=== PATIENT | male | born 1950 | race Caucasian/White ===

== ENCOUNTER 2017-08-16 07:53 | Observation (INO) | payer MEDICARE ==
[2017-08-13 09:13] LABS: BASOPHILS # (AUTO) 0.1 (0.0-0.1); BASOPHILS % 0.7 % (0.0-1.0); EOSINOPHILS # (AUTO) 0.1 (0.0-0.4); EOSINOPHILS % 1.6 % (0.0-6.0); HEMOGLOBIN 16.1 g/dL (14.0-18.0); LYMPHOCYTES # (AUTO) 1.6 (1.0-3.2); LYMPHOCYTES % 21.7 % (18.0-39.1); MEAN CORPUSCULAR HEMOGLOBIN 34.7 pg (28-32); MEAN CORPUSCULAR HGB CONC 35.8 g/dL (31-35); MONOCYTES # (AUTO) 0.8 (0.2-0.8); MONOCYTES % 10.4 % (4.4-11.3); NEUTROPHILS # (AUTO) 4.9 (2.1-6.9); NEUTROPHILS % 64.9 % (38.7-80.0); PLATELET COUNT 186 x10e3/uL (140-360); RED BLOOD COUNT 4.64 x10e6/uL (4.3-5.7); RED CELL DISTRIBUTION WIDTH 13.2 % (11.7-14.4)
--- NOTE | 2017-08-13 10:07 | Diagnostic Imaging Report ---
PROCEDURE: X-RAY CHEST, TWO VIEWS COMPARISON: 01/12/12. INDICATIONS: PREOPERATIVE CHEST XRAY FOR KNEE SURGERY FINDINGS: The lungs are well-inflated. Linear opacity in the left lung base compatible with subsegmental atelectasis. No consolidation, pleural effusion, or pneumothorax. Cardiomediastinal contour is stable with mild tortuosity of the thoracic aorta. No overt pulmonary edema. No acute osseous abnormality. Surgical lips project over the upper abdomen on the lateral radiograph, also unchanged. CONCLUSION: Linear atelectasis in the left lung base. Otherwise no acute cardiopulmonary abnormality. Dictated by: Israel Salamanca M.D. on 08/13/2017 at 10:11 Electronically approved by: Israel Salamanca M.D. on 08/13/2017 at 10:11
[~2017-08-16] VITALS: Ht 175.3 cm; Wt 99.8 kg
[~2017-08-16 07:53] MED LIST: ASPIRIN NON IR325 MG PO; CYCLOBENZAPRINE10 MG PO; FOLIC ACID1 MG PO; LEVOTHYROXINE50 MCG PO; LOPRESSOR25 MG PO; LOSARTAN POTAS100 MG PO; MELOXICAM15 MG PO; NITROGLYCERIN0.4 MG; PLAVIX75 MG PO; ROPIVACAINE 246.25 MG, EPINEPHRINE HCL 1:1000 0.5 MG, CLONIDINE HCL 0.08 MG, KETOROLAC ... INJ ONE; SIMVASTATIN40 MG PO; SINGULAIR10 MG PO; VITAMIN D1000 UNI1 PO
[2017-08-16] MEDS ORDERED: GABAPENTIN 300 MG CAP ONE (08:21)
[2017-08-16] MEDS ORDERED: CEFAZOLIN SOD 2 GM/D5W 50ML 50 ML IV ONE (08:21)
[2017-08-16] MEDS ORDERED: DEXAMETHASONE SOD PHOS 10 MG/1 ML VIAL ONE (08:21)
[2017-08-16] MEDS ORDERED: CELECOXIB 200 MG CAP ONE (08:21)
[2017-08-16] MEDS ORDERED: BACITRACIN 50,000 UNIT VIAL ONE (08:50)
[2017-08-16] MEDS ORDERED: TRANEXAMIC ACID 1,000 MG/10 ML ML ONE (08:50)
[2017-08-16] MEDS ORDERED: MUPIROCIN 2% OINT 22 GM TUBE ONE (08:50)
[2017-08-16] MEDS ORDERED: SODIUM CHLORIDE 0.9% 1000ML 1,000 ML IV SCH (11:21)
[2017-08-16] MEDS ORDERED: HYDROCODONE/APAP 5MG-325MG TAB PO PRN (11:30)
[2017-08-16] MEDS ORDERED: PROMETHAZINE HCL (IM) 25 MG/ML VIAL IM PRN (11:30)
[2017-08-16] MEDS ORDERED: ACETAMINOPHEN 650 MG SUPP PR PRN (11:30)
[2017-08-16] MEDS ORDERED: DIPHENHYDRAMINE HCL INJ 50 MG/ML VIAL IM/IV PRN (11:30)
[2017-08-16] MEDS ORDERED: ONDANSETRON HCL INJ 2 MG/ML VIAL IV PRN (11:30)
[2017-08-16] MEDS ORDERED: DOCUSATE SODIUM 100 MG CAP PO PRN (11:30)
[2017-08-16] MEDS ORDERED: FENTANYL CITRATE/PF 100MCG/2 ML INJ ONE ×2 (11:48→17:42)
--- NOTE | 2017-08-16 12:00 | Diagnostic Imaging Report ---
PROCEDURE: X-RAY RIGHT KNEE, ONE OR TWO VIEWS COMPARISON: None. INDICATIONS:STATUS POST RIGHT KNEE SURGERY FINDINGS: See conclusion. CONCLUSION: Status post total right knee replacement with surrounding soft tissue swelling, air and linette consistent with recent surgery. No periprosthetic displaced fractures. Dictated by: Israel Salamanca M.D. on 08/16/2017 at 12:03 Electronically approved by: Israel Salamanca M.D. on 08/16/2017 at 12:03
[2017-08-16] MEDS: ACETAMINOPHEN 1000 MG/100 ML IV SCH ×3 (12:48→23:16)
--- NOTE | 2017-08-16 12:56 | Operative Report ---
DATE OF PROCEDURE: August 16, 2017 SALES LEAD GENERATOR: Benjamin Mao PA-C The patient was brought to the operating room for induction of anesthesia. Throughout this case, my PA's assistance was necessary for retraction of soft tissue and positioning of the extremity. This allows for efficient and technically successful execution of the operation and is considered medically necessary. PREOPERATIVE DIAGNOSIS: Osteoarthritis right knee. POSTOPERATIVE DIAGNOSIS: Osteoarthritis right knee. PROCEDURE: Right total knee arthroplasty. INDICATIONS: The patient is a 67-year-old gentleman with advanced osteoarthritis of his right knee. He has failed conservative management and feels the symptoms are severely compromising his quality of life. He would like to proceed with a right total knee replacement. The risks and benefits have been explained. He states he understands and wishes to proceed. DESCRIPTION OF PROCEDURE: The patient was brought to the operating room and placed under general anesthetic. He received a regional block, prophylactic antibiotics and tranexamic acid in the holding area. His right lower extremity was prepped and draped in a sterile manner. A preoperative time out was performed. The extremity was exsanguinated, and the proximal tourniquet was inflated to 300 mmHg. An anterior approach with a medial parapatellar arthrotomy was performed. Soft-tissue releases were performed to bring the knee up into flexion with the patella everted. Meniscal remnants and marginal osteophytes were removed. The cruciate ligaments were sacrificed. A [employer] Samina II posterior stabilized knee system was used throughout the case. The proximal tibia was resected with an extramedullary cutting guide. The tibial baseplate was a size number 6. The central fin punch was impacted, and attention was directed towards the distal femur. An intramedullary cutting guide was used to resect the distal femur in 6 degrees of valgus and rotation referenced off of a combination of landmarks including [place]'s line, the epicondylar axis and the posterior condyles. The femoral component was a size number 7. The anterior and posterior cuts were made. Trial reductions were performed. A 9 mm ultracongruent tibial insert provided optimal soft-tissue balancing in full extension and 90 degrees of flexion. The patella was resurfaced with a 35 mm x 9 mm patellar button. The thickness was checked before and after resurfacing and was right at 27 mm. The patellar tracking was noted to be concentric. The trial implants were then all removed. The knee was thoroughly irrigated with a shower-tip pulsatile lavage. A 100 mL premixed pericapsular GIGI injection was placed into the surrounding soft tissue. The components were then cemented into place using a single mix of [place] cement pre-loaded with antibiotics. Care was taken to remove extravasated cement. The wound was further irrigated while the cement cured. The arthrotomy was then closed with interrupted number 1 Ethibond. The knee was put through flexion and extension to ensure a secure closure. The skin was then closed with subcuticular Vicryl and linette. A sterile bandage was applied. The patient was extubated and transported to the recovery room in stable condition. Blood loss was minimal. All needle and sponge counts were correct. Job#: [id number] JENIFER
[2017-08-16 13:03] VITALS: BP 137/73
[2017-08-16] MEDS: KETOROLAC TROMETHAMINE 30 MG/ML VIAL IV PRN ×2 (13:10→20:05)
[2017-08-16] MEDS ORDERED: CELECOXIB 100 MG CAP PO SCH (17:00)
[2017-08-16] MEDS: CELECOXIB 200 MG CAP PO SCH (17:01)
[2017-08-16] MEDS: ASPIRIN 325 MG TAB PO SCH (17:01)
[2017-08-16] MEDS: CEFAZOLIN SOD 1 GM/D5W 50ML 50 ML IV SCH (17:25)
[2017-08-16] MEDS ORDERED: LIDOCAINE HCL 2% LOCAL INJ 5 ML SDV VIAL INJ ONE (17:26)
[2017-08-16] MEDS ORDERED: SEVOFLURANE INHAL SOLN 250 ML PEN BTL ONE (17:26)
[2017-08-16] MEDS ORDERED: DEXAMETHASONE SOD PHOS INJ 4 MG/ML VIAL ONE (17:26)
[2017-08-16] MEDS ORDERED: PROPOFOL IV EMULSION 10 MG/ML 20 ML VIAL ONE (17:26)
[2017-08-16] MEDS ORDERED: ROPIVACAINE 0.5% 5 MG/ML 30 ML SDV ONE (17:39)
[2017-08-16] MEDS ORDERED: MIDAZOLAM HCL 2 MG/2 ML VIAL ONE (17:42)
[2017-08-16] MEDS: HYDROCODONE/APAP 7.5MG-325MG 1 EA TAB PO PRN ×2 (19:20→23:16)
[2017-08-16 20:00] VITALS: BP 131/69
[2017-08-16 20:05] VITALS: BP 131/69
[2017-08-16] MEDS ORDERED: ZOLPIDEM TARTRATE 5 MG TAB PO PRN (21:00)
[2017-08-17] VITALS: BP 117/63
[2017-08-17] MEDS: CEFAZOLIN SOD 1 GM/D5W 50ML 50 ML IV SCH ×2 (01:50→11:10)
[2017-08-17 04:00] VITALS: BP 115/58
[2017-08-17] MEDS: HYDROCODONE/APAP 7.5MG-325MG 1 EA TAB PO PRN (04:50)
[2017-08-17] MEDS: ACETAMINOPHEN 1000 MG/100 ML IV SCH (05:54)
[2017-08-17] MEDS: KETOROLAC TROMETHAMINE 30 MG/ML VIAL IV PRN (06:34)
[2017-08-17 06:42] LABS: HEMATOCRIT 40.1 % (38.2-49.6)
[2017-08-17] MEDS ORDERED: LEVOTHYROXINE SODIUM 50 MCG TAB PO SCH (06:45)
[2017-08-17 08:17] VITALS: BP 143/68
[2017-08-17] MEDS ORDERED: LOSARTAN POTASSIUM 100 MG TAB PO SCH (09:00)
[2017-08-17] MEDS ORDERED: CHOLECALCIFEROL 1,000 UNIT TAB PO SCH (09:00)
[2017-08-17] MEDS ORDERED: METOPROLOL TARTRATE 25 MG TAB PO SCH (09:00)
[2017-08-17] MEDS ORDERED: FOLIC ACID 1 MG TAB PO SCH (09:00)
[2017-08-17] MEDS: ASPIRIN 325 MG TAB PO SCH (09:18)
[2017-08-17] MEDS: CELECOXIB 200 MG CAP PO SCH (09:18)
[2017-08-17 09:22] VITALS: BP 143/68
[2017-08-17] MEDS ORDERED: ASPIRIN325 MG PO (09:53)
[2017-08-17] MEDS ORDERED: ACETAMINOPHEN 1000 MG/100 ML IV PRN (11:30)
[2017-08-17 13:25] VITALS: BP 132/66
[2017-08-17] MEDS ORDERED: SIMVASTATIN 40 MG TAB PO SCH ×2 (21:00)
== END 2017-08-17 13:48 | disposition home health service (06) ==
LOC: OR 07:53 → PACU V 11:24 → MED/SURG 12:15
PROVIDERS: ADMIT Specialist; ATTEND Specialist
DX: M17.11 Unilateral primary osteoarthritis, right knee (principal); D64.9 Anemia, unspecified; I10 Essential (primary) hypertension; I25.10 Atherosclerotic heart disease of native coronary artery without angina pectoris; G47.30 Sleep apnea, unspecified; I25.2 Old myocardial infarction; Z88.5 Allergy status to narcotic agent
CPT/HCPCS: 27447; 36415 ×2; 71046; 73560; 85014; 85018; 85025; 86850; 86900; 86920; 93005; 97110; 97116 ×2; 97161; G0378 ×2; G8978; G8979; J0171; J1100 ×2; J1885 ×2; J2001; J2250; J2795; J7030

== ENCOUNTER → 2017-08-24 | Outpatient (CLI) | payer MEDICARE, OTHER ==
[~2017-08-24] MED LIST changes: +ASPIRIN325 MG PO; -ROPIVACAINE 246.25 MG, EPINEPHRINE HCL 1:1000 0.5 MG, CLONIDINE HCL 0.08 MG, KETOROLAC ... INJ ONE
== END ==
LOC: RAD 16:05
PROVIDERS: ATTEND Specialist
DX: R22.41 Localized swelling, mass and lump, right lower limb (principal)
CPT/HCPCS: 93971

== ENCOUNTER → 2018-09-23 | Day surgery (SDC) | payer MEDICARE ==
[2018-09-20 12:35] LABS: BASOPHILS % 0.5 % (0.0-1.0); EOSINOPHILS # (AUTO) 0.1 (0.0-0.4); EOSINOPHILS % 1.6 % (0.0-6.0); HEMATOCRIT 39.3 % (38.2-49.6); HEMOGLOBIN 13.5 g/dL (14.0-18.0); LYMPHOCYTES # (AUTO) 1.7 (1.0-3.2); LYMPHOCYTES % 23.5 % (18.0-39.1); MEAN CORPUSCULAR HEMOGLOBIN 31.8 pg (28-32); MEAN CORPUSCULAR HGB CONC 34.4 g/dL (31-35); MEAN CORPUSCULAR VOLUME 92.5 fL (81-99); MONOCYTES # (AUTO) 0.7 (0.2-0.8); NEUTROPHILS # (AUTO) 4.7 (2.1-6.9); PLATELET COUNT 232 x10e3/uL (140-360); RED BLOOD COUNT 4.25 x10e6/uL (4.3-5.7)
[2018-09-20 12:46] LABS: ANION GAP 14.6 mmol/L (8-16); BLOOD UREA NITROGEN 23 mg/dL (7-26); BUN/CREATININE RATIO 24 (6-25); CALCIUM 9.6 mg/dL (8.4-10.2); CARBON DIOXIDE 24 mmol/L (22-29); CHLORIDE 105 mmol/L (98-107); CREATININE, SERUM 0.95 mg/dL (0.72-1.25); EST GLOMERULAR FILTRATION RATE > 60 ML/MIN (60-); GLUCOSE 92 mg/dL (74-118); POTASSIUM 4.6 mmol/L (3.5-5.1); SODIUM 139 mmol/L (136-145)
--- NOTE | 2018-09-20 13:32 | Diagnostic Imaging Report ---
EXAMINATION: CHEST 2 VIEWS INDICATION: Pre-operative COMPARISON: None FINDINGS: LINES/TUBES:None LUNGS:The lungs are well-inflated. No focal consolidation or pulmonary edema. PLEURA:No pleural effusion or pneumothorax. MEDIASTINUM:The cardiomediastinal silhouette appears normal in size and shape. BONES/SOFT TISSUES:No acute osseous injury. ABDOMEN:No free air under the diaphragm. IMPRESSION: No focal pneumonia or pulmonary edema. Signed by: John Cook MD on 09/20/2018 1:29 PM
[~2018-09-23] MED LIST changes: +ACETAMINOPHEN 1000 MG/100 ML IV ONE; +BUPIVACAINE HCL 0.5% INJ 30 ML VIAL INJ ONE; +DESFLURANE 240 ML BTL INH ONE; +DEXAMETHASONE SOD PHOS INJ 4 MG/ML VIAL ONE; +FENTANYL CITRATE/PF 100MCG/2 ML INJ ONE; +GLYCOPYRROLATE INJ 1MG/ 5 ML SYR ONE; +LIDOCAINE HCL 2% LOCAL INJ 5 ML SDV VIAL INJ ONE; +LOSARTAN-HCTZ1 EAC2 PO; +MIDAZOLAM HCL 2 MG/2 ML VIAL ONE; +MORPHINE SULFATE INJ 10 MG/ML ONE; +NEOSTIGMINE 1 MG/ML 10ML VIAL ONE; +NEOSTIGMINE 5 MG/5ML SYR ONE; +ONDANSETRON HCL INJ 2MG/ML 2ML 2 MG/ML VIAL ONE; +PROPOFOL IV EMULSION 10 MG/ML 20 ML VIAL ONE; +ROCURONIUM BROMIDE 10 MG/ML 5ML VIAL ONE
[2018-09-23 13:10] VITALS: BP 116/70
--- NOTE | 2018-09-23 20:39 | Operative Report ---
DATE OF PROCEDURE: 09/23/2018 SURGEON: Elvin Roberts DPM ROOM NUMBER: [facility] PREOPERATIVE DIAGNOSES: Retrocalcaneal ptosis of the left foot. Ruptured Achilles tendon with enthesopathy, left foot. Contracture of the gastrocnemius soleus complex, left foot. POSTOPERATIVE DIAGNOSES: Retrocalcaneal ptosis of the left foot. Ruptured Achilles tendon enthesopathy, left foot. Contracture of the gastrocnemius soleus complex, left foot. TITLE OF THE OPERATIONS: 1. Retrocalcaneal exostectomy of the left foot. 2. Repair of the Achilles tendon, left foot. 3. Gastrocnemius recession, left foot. ANESTHESIA: General endotracheal. HEMOSTASIS: A left thigh tourniquet at 350 mmHg. PROCEDURE IN DETAIL: The patient was taken to the operating room in a mildly sedated state and placed on the operating table in supine position. Following induction of general anesthetic, the left lower extremity was elevated to 60 degrees to exsanguinate before inflating the pneumatic thigh tourniquet to 350 mmHg to create good hemostasis. Left lower extremity was placed on the operating table prior to performing the following procedure: Procedure #1: Retrocalcaneal exostectomy of left foot. An approximate 6 cm curvilinear incision was made in the posterior aspect of the left heel. The incision was deepened via sharp and blunt dissection at the level of dorsal capsular structure and posterior retinaculum. The peritenon was incised and the hypertrophic ruptured tendon were delivered in the surgical site reflected from the underlying bone. An osteotome and mallet were used to resect the posterior aspect of the heel and the Achilles itself was noted to be hypertrophic and thickened, this was remodeled with removal of all calcification of the Achilles of posterior heel, this area after removal was then elongated with a 2nd procedure. A higher longitudinal incision was made at the gastrocnemius-soleus aponeurosis and transverse Anuel type procedure was performed to link tendon. After debridement of all frayed and ruptured distal tendon, this elongated piece was pulled down and reapproximated the posterior aspect of the heel utilizing an [employer], this was inserted and soft tissue repaired with #2 FiberWire. The area was irrigated. Deep closure was 3-0 Vicryl, subcutaneous closure was 4-0 Vicryl, skin closure 4-0 nylon. The area was closed and then blocked with 0.5 Marcaine. A grafting of human tissue allograft had been applied to the posterior aspect of tendon prior to closure with excellent fixation noted. The appropriate closure of the more proximal wound for gastrocnemius soleus recession was performed as well. This having been accomplished, all areas blocked. The posterior splint was applied. The patient left the operating room, vital signs are stable in apparent satisfactory condition having tolerated both the anesthetic and procedure very well. JESI Longo/DIPTI /[id number]
== END | disposition home or self-care (01) ==
LOC: OR 07:35
PROVIDERS: ATTEND Podiatrist Foot Surgery
DX: M25.775 Osteophyte, left foot (principal); M66.872 Spontaneous rupture of other tendons, left ankle and foot; M24.575 Contracture, left foot; G47.33 Obstructive sleep apnea (adult) (pediatric); I25.2 Old myocardial infarction; I10 Essential (primary) hypertension; E03.9 Hypothyroidism, unspecified; E83.119 Hemochromatosis, unspecified; Z88.6 Allergy status to analgesic agent; Z01.810 Encounter for preprocedural cardiovascular examination; Z01.812 Encounter for preprocedural laboratory examination; Z01.818 Encounter for other preprocedural examination; Z96.659 Presence of unspecified artificial knee joint
CPT/HCPCS: 27650; 27687; 28118; 36415; 71046; 80048; 85025; 93005; C1713; J0131; J1100; J2001; J2250; J2270; J2405; J2704; J2710; J3010; J3490; Q4100; 76000

== ENCOUNTER 2022-05-10 09:38 | Emergency (ER) | payer MEDICARE, OTHER ==
[~2022-05-10] VITALS: Ht 175.3 cm; Wt 97.5 kg
[~2022-05-10 09:38] MED LIST changes: -ACETAMINOPHEN 1000 MG/100 ML IV ONE; -BUPIVACAINE HCL 0.5% INJ 30 ML VIAL INJ ONE; -DESFLURANE 240 ML BTL INH ONE; -DEXAMETHASONE SOD PHOS INJ 4 MG/ML VIAL ONE; -FENTANYL CITRATE/PF 100MCG/2 ML INJ ONE; -GLYCOPYRROLATE INJ 1MG/ 5 ML SYR ONE; -LIDOCAINE HCL 2% LOCAL INJ 5 ML SDV VIAL INJ ONE; -MIDAZOLAM HCL 2 MG/2 ML VIAL ONE; -MORPHINE SULFATE INJ 10 MG/ML ONE; -NEOSTIGMINE 1 MG/ML 10ML VIAL ONE; -NEOSTIGMINE 5 MG/5ML SYR ONE; -ONDANSETRON HCL INJ 2MG/ML 2ML 2 MG/ML VIAL ONE; -PROPOFOL IV EMULSION 10 MG/ML 20 ML VIAL ONE; -ROCURONIUM BROMIDE 10 MG/ML 5ML VIAL ONE
[2022-05-10 10:25] LABS: CLARITY,URINE HAZY (CLEAR); COLOR,URINE AMBER (YELLOW)
[2022-05-10 10:26] LABS: KETONES,URINE NEGATIVE (NEGATIVE); LEUKOCYTE ESTERASE ,URINE NEGATIVE (NEGATIVE); NITRITE,URINE POSITIVE (NEGATIVE); PROTEIN,URINE DIPSTICK 1+ (NEGATIVE); URINE UROBILINOGEN 2 mg/dL (0.2 - 1)
[2022-05-10 10:30] LABS: BACTERIA,URINE FEW /HPF; EPITHELIAL CELLS,URINE FEW /LPF; RBC,URINE 0-5 /HPF (0-5); WBC,URINE (MAN) 0-5 /HPF (0-5)
[2022-05-10] MEDS ORDERED: PYRIDIUM100 MG PO (12:45)
[2022-05-10] MEDS ORDERED: AMOXICILLIN875 MG PO (12:45)
== END 2022-05-10 14:39 | disposition home or self-care (01) ==
LOC: ER 09:45
DX: R30.0 Dysuria (principal); R35.0 Frequency of micturition; Z20.822 Contact with and (suspected) exposure to COVID-19
CPT/HCPCS: 81001; 87086; 99283; U0002

== ENCOUNTER 2024-05-12 11:18 | Outpatient (RCR) | payer MEDICARE ==
[~2024-05-12 11:18] MED LIST changes: +AMOXICILLIN875 MG PO; +PYRIDIUM100 MG PO
== END 2024-05-15 ==
LOC: PT 11:18
PROVIDERS: ATTEND Neurological Surgery
DX: M48.061 Spinal stenosis, lumbar region without neurogenic claudication (principal)

== ENCOUNTER 2024-05-18 08:00 | Outpatient (RCR) | payer MEDICARE | END 2024-06-14 | LOC: PT 08:00 | PROVIDERS: ATTEND Neurological Surgery | DX: M48.061 Spinal stenosis, lumbar region without neurogenic claudication (principal) ==